=== PATIENT | male | born 1955 | race Caucasian/White ===

== ENCOUNTER 2017-07-12 11:18 | Observation (INO) ==
[2017-07-12] MEDS ORDERED: Ipratropium/Albuterol Neb 3 ML IH ONE (11:55)
--- NOTE | 2017-07-12 11:56 | Emergency Department Note ---
Disposition Clinical Impression: Pneumonia, Anemia, CKD (chronic kidney disease), Hypoglycemia Disposition: Admitted As Inpatient Condition: Fair Referrals: Kg Mejia MD [Primary Care Provider] - Anupama Erickson MD [Family Provider] - Forms: ED Satisfaction Letter, Work/School Release Time of Disposition: 13:35 ([facility]) General Adult HPI - General Chief complaint: ED General Medical Stated complaint: LOW BLOOD SUGAR Time Seen by Provider: 07/12/17 11:28 Source: EMS Mode of arrival: EMS Limitations: altered mental status Nursing Notes Reviewed: Yes Vital Signs Reviewed: Yes - History of Present Illness HPI Narrative: Notified by jail that the patient was to go to fist with his family when they went back to getting here almost fallen out of the bed and was difficult to arouse they did an Accu-Chek was 24 they gave him oral glucose at that time he continued to be combative at which point they then tried giving him additional glucose he was then sent to the emergency room by EMS for further evaluation EMS states they gave him IV glucose in route and he is now awakening and becoming more responsive and was initially they stated that he was cold and clammy patient was initially unable to tell us any history other than he had this not been feeling well after he was a fully awake that prior to the onset he said he felt fine yesterday during the day toward his evening started feeling Ill then by this morning was unaware of what happened Onset (ago): Just [employer] Location: other (generalzed) Pain Scale: 0 Consistency: Improving Improves with: other (iv glucose) Worsens with: nothing Associated symptoms: Reports: confusion, cough, diaphoresis, loss of appetite, malaise, shortness of breath, weakness. Denies: chest pain, fever/chills, headaches, nausea/vomiting, seizure, syncope Treatments Prior to Arrival: other (oral glucose bper [facility]) - Related Data Home Medications Medication Instructions Recorded Confirmed Atorvastatin [Lipitor] 40 mg PO HS 11/26/16 07/12/17 Allopurinol [Zyloprim 100 MG] 100 mg PO DAILY 06/03/17 07/12/17 Isosorbide DInitrate [Isosorbide 10 mg PO TID 06/03/17 07/12/17 Dinitrate] Metoprolol [Lopressor] 50 mg PO BID 06/03/17 07/12/17 SitaGLIPtin [Januvia] 25 mg PO DAILY 06/03/17 07/12/17 hydrALAZINE [HydrALAZINE] 10 mg PO TID 06/03/17 07/12/17 Oxycodone HCl [Oxycontin] 15 mg PO BID PRN 07/01/17 07/12/17 Insulin ASPART [NovoLOG] 0 unit SQ TIDWM 07/12/17 07/12/17 Insulin DETEMIR [Levemir Flextouch] 15 unit SQ QAM 07/12/17 07/12/17 Insulin DETEMIR [Levemir Flextouch] 20 unit SQ QPM 07/12/17 07/12/17 Previous Rx's Medication Instructions Recorded Acyclovir [Zovirax] 400 mg PO BID #60 tablet 05/20/17 Amitriptyline [Elavil] 50 mg PO HS #30 tablet 05/20/17 Furosemide [Lasix] 40 mg PO DAILY #30 tablet 07/08/17 Allergies Allergy/AdvReac Type Severity Reaction Status Date / Time SURGICAL TAPE Allergy Mild Rash Uncoded 06/24/17 08:08 Limitations: ROS unobtainable due to patients medical condition Past Medical History - Past Medical History Attestation: Yes The following information was validated with the patient. Source: patient, old records reviewed, obtained from family, nursing notes reviewed Medical history: Reports: asthma, cancer, COPD, CVA, diabetes, hypertension, myocardial infarction Surgical history: Reports: cancer surgery, vasectomy Psychiatric history: Reports: anxiety - Social History Smoking Status: Current some day smoker Smokeless Tobacco Status: No Alcohol use: Reports: none Drug use: Reports: none Physical Exam - General Limitations: altered mental status (slow o respond initially) General appearance: alert, in no apparent distress, lethargic, other - Head Head exam: atraumatic, normocephalic, normal inspection - Eye Eye exam: Present: normal appearance, PERRL, EOMI - ENT ENT exam: normal exam, normal oropharynx, mucous membranes moist, TM's normal bilaterally, normal external ear exam - Neck Neck exam: Present: normal inspection, full ROM, trachea midline - Chest Chest inspection: Present: normal inspection, symmetric chest wall rise. Absent : tenderness - Respiratory Respiratory exam: Present: wheezes (and rhonci), prolonged expiratory phase - Cardiovascular Cardiovascular exam: Present: regular rate, normal rhythm, normal heart sounds - Abdominal Exam Abdominal exam: Present: soft, Non-Tender, normal bowel sounds. Absent: mass, pulsatile mass - Extremities Exam Extremities exam: Present: normal inspection, full ROM, normal capillary refill. Absent: tenderness, pedal edema, joint swelling, calf tenderness - Expanded Lower Extremity Exam Neurovascular/Tendon exam: Present: normal capillary refill, normal fine/light touch Gait: observed and normal - Back Exam Back exam: Present: normal inspection, full ROM. Absent: muscle spasm - Neurological Exam Neurological exam: Present: alert, CN II-XII intact, other (slow but as becomes more alert is A/o x 3) - Psychiatric Psychiatric exam: Present: normal affect, normal mood - Skin Skin exam: Present: intact, pallor, other (cold and clamy after glucose warm and dry) Course Course Narrative: Patient was seen and examined patient was given aerosol treatments which did help clear up his respiratory significantly still having wheezing and congestion noted after the aerosol treatment patient also received IV antibiotics patient is alert and appropriate since receiving oral glucose and IV glucose per EMS patient states he just did not feel well as result patient will be admitted for the underlying pneumonia which is precipitating most likely causing his hypoglycemic events transferred to [facility] service of Dr. Reid he agrees Vital Signs Temperature 97.4 F L 07/12/17 11:23 Pulse Rate 71 07/12/17 11:23 Respiratory Rate 16 07/12/17 11:23 Blood Pressure 135/68 07/12/17 11:23 O2 Sat by Pulse Oximetry 99 07/12/17 11:23 Temperature 97.4 F L 07/12/17 11:23 Pulse Rate 67 07/12/17 13:01 Respiratory Rate 16 07/12/17 13:01 Blood Pressure 144/84 07/12/17 13:01 O2 Sat by Pulse Oximetry 99 07/12/17 13:01 Oxygen Delivery Oxygen Delivery Nasal Cannula Medical Decision Making - [facility] Narrative Medical decision making narrative: Hypoglycemia secondary to not eating versus infectious etiology or overmedication - Medical Records Medical records reviewed: Yes I reviewed the patient's medical records. - Lab Data Lab results reviewed: Yes I reviewed the patient's lab results. Result diagrams: 07/12/17 12:25 07/12/17 12:25 Lab Results 07/12/17 07/12/1707/12/17 Range/Units 12:25 12:25 12:25 WBC 7.0 (4.3-11.1) K/mcL RBC 2.56 L (4.19-5.50) M/mcL Hgb 7.8 L (12.9-16.9) g/dL Hct 23.8 L (37.5-50.1) % MCV 93.0 (83.0-100.0) fL MCH 30.5 (28.0-33.3) pg MCHC 32.8 (31.6-35.5) g/dL RDW 17.2 H (11.5-14.5) % Plt Count 75 L (140-400) K/mcL MPV 11.6 (9.4-12.4) fL Immature Gran % 0.4 (0-4) % Seg Neutrophils % 92.6 % Lymphocytes % 1.8 % Monocytes % 5.0 % Eosinophils % 0.1 % Basophils % 0.1 % Neutrophils # 6.5 (1.6-8.9) K/mcL Lymphocytes # 0.1 L (0.6-4.6) K/mcL Monocytes # 0.4 (0.0-1.3) K/mcL Eosinophils # 0.0 (0.0-0.6) K/mcL Basophils # 0.0 (0.0-0.2) K/mcL Platelet Estimate Decreased L (Normal) PT 15.1 H (9.4-12.1) Seconds INR 1.4 APTT 33.1 (26.0-36.0) Seconds Sodium 139 (136-145) mEq/L Potassium 3.4 L (3.5-4.5) mEq/L Chloride 104 (98-109) mEq/L Carbon Dioxide 26 (19-29) mEq/L BUN 34 H (8-26) mg/dL Creatinine 2.34 H (0.72-1.25) mg/dL Est GFR ( Amer) 34 L (> 60) Est GFR (Non-Af Amer) 28 L (> 60) BUN/Creatinine Ratio 15 (6-26) Glucose 73 (70-99) mg/dL Calculated Osmolality 294 (280-300) Lactic Acid (0.5-2.2) mmol/L Calcium 8.1 L (8.6-10.8) mg/dL Troponin I (0-0.03) ng/mL Urine Color (Yellow) Urine Clarity (Clear) Urine pH (5.0-8.0) pH Units Ur Specific [place] (1.010-1.025) Urine Protein (Neg-Trace) mg/dL Urine Glucose (UA) (Normal) mg/dL Urine Ketones (Negative) mg/dL Urine Blood (Negative) Urine Nitrite (Negative) Urine Bilirubin (Negative) Urine Urobilinogen (Normal) mg/dL Ur Leukocyte Esterase (Negative) Urine Microscopic RBC (0-3) per hpf Ur Squamous Epith Cells (None-Few) per lpf Ur Culture Indicated? (NO) 07/12/17 07/12/17 07/12/17 Range/Units 12:25 12:30 13:12 WBC (4.3-11.1) K/mcL RBC (4.19-5.50) M/mcL Hgb (12.9-16.9) g/dL Hct (37.5-50.1) % MCV (83.0-100.0) fL MCH (28.0-33.3) pg MCHC (31.6-35.5) g/dL RDW (11.5-14.5) % Plt Count (140-400) K/mcL MPV (9.4-12.4) fL Immature Gran % (0-4) % Seg Neutrophils % % Lymphocytes % % Monocytes % % Eosinophils % % Basophils % % Neutrophils # (1.6-8.9) K/mcL Lymphocytes # (0.6-4.6) K/mcL Monocytes # (0.0-1.3) K/mcL Eosinophils # (0.0-0.6) K/mcL Basophils # (0.0-0.2) K/mcL Platelet Estimate (Normal) PT (9.4-12.1) Seconds INR APTT (26.0-36.0) Seconds Sodium (136-145) mEq/L Potassium (3.5-4.5) mEq/L Chloride (98-109) mEq/L Carbon Dioxide (19-29) mEq/L BUN (8-26) mg/dL Creatinine (0.72-1.25) mg/dL Est GFR ( Amer) (> 60) Est GFR (Non-Af Amer) (> 60) BUN/Creatinine Ratio (6-26) Glucose (70-99) mg/dL Calculated Osmolality (280-300) Lactic Acid 0.8 (0.5-2.2) mmol/L Calcium (8.6-10.8) mg/dL Troponin I 0.05 H* (0-0.03) ng/mL Urine Color Yellow (Yellow) Urine Clarity Clear (Clear) Urine pH 7.0 (5.0-8.0) pH Units Ur Specific [place] 1.020 (1.010-1.025) Urine Protein 100 H (Neg-Trace) mg/dL Urine Glucose (UA) Normal (Normal) mg/dL Urine Ketones Negative (Negative) mg/dL Urine Blood Trace-lysed H (Negative) Urine Nitrite Negative (Negative) Urine Bilirubin Negative (Negative) Urine Urobilinogen Normal (Normal) mg/dL Ur Leukocyte Esterase Negative (Negative) Urine Microscopic RBC 0-3 (0-3) per hpf Ur Squamous Epith Cells Few (None-Few) per lpf Ur Culture Indicated? NO (NO) - Radiology Data Radiology results reviewed: Yes I reviewed the patient's radiology results. ITS Impressions Chest X-Ray 07/12/17 11:54 IMPRESSION: Findings as above concerning for multifocal pneumonia or edema. D/ / Anisha Loomis MD / Anisha Loomis MD Interpreting Provider: Anisha Loomis MD - EKG Data EKG #1 EKG attestation: Yes I reviewed and interpreted this EKG. EKG results narrative: Sinus rhythm rate 64 PA 170 QRS 120 QT 442 excess 74 Critical Care Time Critical Care Time: No
[2017-07-12] MEDS ORDERED: 0.9 % Sodium Chloride 1,000 ML IVC SCH ×2 (12:00→14:04)
[2017-07-12] MEDS ORDERED: Ipratropium/Albuterol Neb 3 ML ONE (12:25)
[2017-07-12 12:34] LABS: Basophils % 0.1 %; Eosinophils % 0.1 %; Hematocrit 23.8 % (37.5-50.1); Hemoglobin 7.8 g/dL (12.9-16.9); Immature Granulocytes % 0.4 % (0-4); Lymphocytes # 0.1 K/mcL (0.6-4.6); Lymphocytes % 1.8 %; Mean Corpuscular HGB Conc 32.8 g/dL (31.6-35.5); Mean Corpuscular Hemoglobin 30.5 pg (28.0-33.3); Mean Platelet Volume 11.6 fL (9.4-12.4); Monocytes # 0.4 K/mcL (0.0-1.3); Neutrophils # 6.5 K/mcL (1.6-8.9); Red Blood Count 2.56 M/mcL (4.19-5.50); Red Cell Distribution Width 17.2 % (11.5-14.5); Segmented Neutrophils % 92.6 %
[2017-07-12 12:39] LABS: Platelet Count 75 K/mcL (140-400)
[2017-07-12 12:40] LABS: INR 1.4; Prothrombin Time 15.1 Seconds (9.4-12.1)
[2017-07-12 12:43] LABS: Activated Partial Thrombo Time 33.1 Seconds (26.0-36.0)
[2017-07-12 12:50] LABS: Calcium 8.1 mg/dL (8.6-10.8); Potassium 3.4 mEq/L (3.5-4.5)
[2017-07-12] MEDS ORDERED: Azithromycin 500 MG in D5% in Water 250 ML IVPB ONE ×2 (12:58→14:30)
[2017-07-12 13:04] LABS: Platelet Estimate Decreased (Normal)
[2017-07-12 13:13] LABS: Bilirubin,Urine Negative (Negative); Blood,Urine Trace-lysed (Negative); Clarity,Urine Clear (Clear); Color,Urine Yellow (Yellow); Glucose,Urine (UA) Normal (Normal); Ketones,Urine Negative (Negative); Leukocyte Esterase,Urine Negative (Negative); Nitrite,Urine Negative (Negative); Protein,Urine 100 mg/dL (Neg-Trace); Urobilinogen,Urine Normal (Normal)
[2017-07-12 13:26] LABS: RBC,Urine 0-3 per hpf (0-3); Squamous Epithelial Cell,Urine Few per lpf (None-Few)
[2017-07-12] MEDS ORDERED: *HR* Dextrose 50 % in Water (Syg) 50 ML SYRINGE IVP PRN (14:04)
[2017-07-12] MEDS ORDERED: D5% in Water 1,000 ML IVC PRN (14:04)
[2017-07-12] MEDS ORDERED: Acetaminophen 325 MG TABLET PO PRN (14:04)
[2017-07-12] MEDS ORDERED: *HR* OxyCODONE Immed Rel 15 MG TABLET PO PRN (14:04)
[2017-07-12] MEDS ORDERED: Ondansetron 4 MG/2 ML VIAL IVP PRN (14:04)
[2017-07-12] MEDS ORDERED: Dextrose Gel 15 GM PO PRN ×2 (14:04)
[2017-07-12] MEDS: Insulin LISPRO 300 UNITS/3 ML VIAL SQ SCH (15:29)
[2017-07-12] MEDS: hydrALAZINE 10 MG TABLET PO SCH ×2 (15:33→20:06)
--- NOTE | 2017-07-12 17:43 | Internal Med History&Physical ---
Date of Encounter: 07/12/17 Time of Encounter: 17:05 Assessment and Plan (1) Pneumonia Current visit: Yes Status: Acute He has been started on Rocephin and Zithromax. I will add lactobacillus. Qualifiers: Pneumonia type: due to unspecified organism Laterality: bilateral Lung location: unspecified part of lung Qualified Code(s): J18.9 - Pneumonia, unspecified organism (2) Heart failure Current visit: Yes Status: Chronic He will be given IV Lasix and increased dose of Toprol and isosorbide. Qualifiers: Heart failure type: combined Qualified Code(s): I50.40 - Unspecified combined systolic (congestive) and diastolic (congestive) heart failure (3) Edema Current visit: Yes Status: Acute Suspect secondary to heart failure. Will order d-dimer. Qualifiers: Edema type: unspecified Qualified Code(s): R60.9 - Edema, unspecified (4) CKD (chronic kidney disease) Current visit: Yes Status: Chronic Will monitor renal indices. Qualifiers: Chronic kidney disease stage: stage 4 (severe) Qualified Code(s): N18.4 - Chronic kidney disease, stage 4 (severe) (5) Anemia Current visit: Yes Status: Chronic Anemia testing May 2017 showed no factor deficiency. Suspect due to multiple myeloma and chronic kidney disease. Qualifiers: Anemia type: unspecified type Qualified Code(s): D64.9 - Anemia, unspecified Internal Medicine - H&P: HPI Chief complaint: Pneumonia Admitted From: Emergency Dept Plans for Post Hospital Care: Home History of present illness: Mr. Benton is a 62 year old male who states he was out on a pass from [facility] with his brother to go to the [place]. He reports becoming dizzy at the [employer] so his brother took him back to the [place]. His blood sugar was found to be low. He did not respond sufficiently to oral glucose intervention. He was sent to emergency room for evaluation and was found to have probable bilateral pneumonia. He was admitted to [facility] floor for ongoing care needs. He denies pain or dyspnea at the present time. His respiratory history is significant for having smoked since age 9 up to 3 packs per day. He wears oxygen at the correction. He is uncertain if he has a diagnosis of COPD. Past Med Surg Social Fam HX - Past Medical History Medical history: asthma, cancer, COPD, CVA, diabetes, hypertension, myocardial infarction Psychiatric history: anxiety - Past Surgical History Surgical History: cancer surgery, vasectomy - Social History Smoking Status: Current some day smoker Packs per day: 0.5 Smokeless Tobacco Status: No Alcohol use: none Drug use: none Internal Medicine - H&P: Meds Atorvastatin [Lipitor] 40 mg PO HS 11/26/16 [History] Acyclovir [Zovirax] 400 mg PO BID #60 tablet 05/20/17 [Rx] Amitriptyline [Elavil] 50 mg PO HS #30 tablet 05/20/17 [Rx] Allopurinol [Zyloprim 100 MG] 100 mg PO DAILY 06/03/17 [History] Isosorbide DInitrate [Isosorbide Dinitrate] 10 mg PO TID 06/03/17 [History] Metoprolol [Lopressor] 50 mg PO BID 06/03/17 [History] SitaGLIPtin [Januvia] 25 mg PO DAILY 06/03/17 [History] hydrALAZINE [HydrALAZINE] 10 mg PO TID 06/03/17 [History] Oxycodone HCl [Oxycontin] 15 mg PO BID PRN 07/01/17 [History] Furosemide [Lasix] 40 mg PO DAILY #30 tablet 07/08/17 [Rx] Insulin ASPART [NovoLOG] 0 unit SQ TIDWM 07/12/17 [History] Insulin DETEMIR [Levemir Flextouch] 15 unit SQ QAM 07/12/17 [History] Insulin DETEMIR [Levemir Flextouch] 20 unit SQ QPM 07/12/17 [History] 3 Allergy/AdvReac Type Severity Reaction Status Date / Time SURGICAL TAPE Allergy Mild Rash Uncoded 06/24/17 08:08 All Systems PM: A 10-system review of systems was performed and is negative for pertinent findings except as documented above in the HPI. Review of systems: Gen.: He states his weight has been stable past 2 months Cardiovascular: He has history of hypertension and had CABG surgeries in 2005 and 2010. He also reports having 5 cardiac stents placed. An echocardiogram showed LVEF of 20-25% with moderate to severe LV diastolic dysfunction. There was [id number] [place], [place], and pulmonary hypertension with estimated RVSP of 45. There was a pleural effusion and a questionable PFO with [id number] shunt. He has had bilateral edema. He denies known DVT or pulmonary embolus. Respiratory: As per history of present illness GI: He denies disorders of his liver gallbladder or exocrine pancreas : He had left nephrectomy 2008 secondary to renal cell cancer. He did not require adjuvant therapy postoperatively. He denies other kidney bladder or prostate disorders Neurologic: He has peripheral neuropathy. He states he has had 2 strokes in the past and reports DepoCyt and balance up.. Endocrine: He was diagnosed with DM 2 approximately 2012. He has hyperlipidemia but denies thyroid disease. Hematology/oncology: He had left nephrectomy 2008 curative for renal cell cancer. He has been diagnosed with IgG lambda multiple myeloma with multiple bone metastases and is following with an [facility] oncologist. He has anemia and thrombocytopenia. Psychiatric: He has depression but denies anxiety or other mental health issues Musk skeletal: He has bone pain from myeloma spread. He is on allopurinol but is uncertain if he has been diagnosed with gout. - Constitutional Vitals: Temp Pulse Resp BP Pulse Ox 98.2 F 72 14 154/79 98 07/12/17 15:24 07/12/17 15:24 07/12/17 15:24 07/12/17 15:24 07/12/17 15:24 Exam: Gen.: He is a well-developed well-nourished male who appears in no severe distress at present time. He denies pain or dyspnea HEENT: Head is atraumatic and normocephalic. Eyes: EOMI. There is no scleral icterus. Mouth: Mucosa is moist. Neck: Supple and nontender. There is no thyromegaly or adenopathy noted. Heart: Regular without murmurs gallops or ectopics Lungs: No wheezes or crackles are heard. He has diminished breath sounds diffusely. Abdomen: Soft and nontender. No masses or guarding are noted. Extremities: He has 2-3+ edema of the left leg and 1-2+ edema of the right leg. Dorsalis pedis and posterior tibial pulses are nonpalpable bilaterally. There is a well-healed scar in the medial left calf from presumed vein graft harvest for previous CABG surgery. Neurologic: Mental status: He is able to answer questions and seems to be a fairly good historian. Cranial nerves: Smile is symmetric. Forehead wrinkles bilaterally. Tongue protrudes midline. EOMI. Motor: There is no pronator drift. Cerebellar: Finger to nose is intact bilaterally. Skin: Warm and dry Internal Med - H&P Results - Labs CBC & Chem 7: 07/12/17 12:25 07/12/17 12:25
[2017-07-12] MEDS ORDERED: Insulin DETEMIR 100 UNIT/ML X5UNITS SQ SCH (18:00)
[2017-07-12] MEDS ORDERED: NON-FORMULARY MEDICATION 1 EACH EACH (Insulin Detemir [Levemir Flextouch] 20 UNIT) SQ SCH (18:00)
[2017-07-12] MEDS: Furosemide 40 MG/4 ML VIAL IVP SCH (18:33)
[2017-07-12] MEDS ORDERED: *HR* Enoxaparin 80 MG/0.8 ML SYRINGE SQ ONE (19:37)
[2017-07-12] MEDS: Lactobacillus 1 EACH CAP.SPRINK PO SCH (20:06)
[2017-07-12] MEDS: Acyclovir 200 MG CAPSULE PO SCH (20:06)
[2017-07-13 07:31] LABS: Basophils % 0.2 %; Eosinophils % 0.5 %; Hematocrit 22.8 % (37.5-50.1); Hemoglobin 7.5 g/dL (12.9-16.9); Immature Granulocytes % 0.3 % (0-4); Lymphocytes # 0.3 K/mcL (0.6-4.6); Lymphocytes % 5.3 %; Mean Corpuscular HGB Conc 32.9 g/dL (31.6-35.5); Mean Corpuscular Hemoglobin 30.6 pg (28.0-33.3); Mean Corpuscular Volume 93.1 fL (83.0-100.0); Mean Platelet Volume 11.3 fL (9.4-12.4); Monocytes # 0.4 K/mcL (0.0-1.3); Monocytes % 6.6 %; Neutrophils # 5.4 K/mcL (1.6-8.9); Red Blood Count 2.45 M/mcL (4.19-5.50); Red Cell Distribution Width 17.2 % (11.5-14.5); Segmented Neutrophils % 87.1 %
[2017-07-13 07:33] LABS: Platelet Count 59 K/mcL (140-400)
[2017-07-13 08:42] LABS: Albumin 2.3 g/dL (3.5-5.0); Albumin/Globulin Ratio 0.7 (1.1-2.2); Bilirubin,Total 0.7 mg/dL (0.2-1.2); Globulin 3.5 g/dL (2.4-3.5); Magnesium 1.4 mg/dL (1.6-2.6); Total Protein 5.8 g/dL (6.0-8.3)
[2017-07-13] MEDS: Lactobacillus 1 EACH CAP.SPRINK PO SCH (09:00)
[2017-07-13] MEDS: Acyclovir 200 MG CAPSULE PO SCH (09:00)
[2017-07-13] MEDS: *HR* SitaGLIPtin 25 MG TABLET PO SCH (09:00)
[2017-07-13] MEDS: hydrALAZINE 10 MG TABLET PO SCH ×2 (09:00→15:49)
[2017-07-13] MEDS ORDERED: Furosemide 40 MG TABLET PO SCH (09:00)
[2017-07-13] MEDS: Furosemide 40 MG/4 ML VIAL IVP SCH (09:02)
--- NOTE | 2017-07-13 09:26 | Internal Med Progress Note ---
Date of Encounter: 07/13/17 Time of Encounter: 09:20 - Assessment and plan (1) Pneumonia Current Visit: Yes Status: Acute Assessment and plan: July 13. Continue Rocephin and Zithromax with lactobacillus. Qualifiers: Pneumonia type: due to unspecified organism Laterality: bilateral Lung location: unspecified part of lung Qualified Code(s): J18.9 - Pneumonia, unspecified organism (2) Heart failure Current Visit: Yes Status: Chronic Assessment and plan: July 13. Continue Toprol, isosorbide, and IV Lasix. Qualifiers: Heart failure type: combined Qualified Code(s): I50.40 - Unspecified combined systolic (congestive) and diastolic (congestive) heart failure (3) Edema Current Visit: Yes Status: Acute Assessment and plan: July 13. Continue heart failure treatment as per above. His d-dimer significantly elevated so bilateral venous ultrasound of the legs will be ordered. Continue empiric Lovenox. Qualifiers: Edema type: unspecified Qualified Code(s): R60.9 - Edema, unspecified (4) CKD (chronic kidney disease) Current Visit: Yes Status: Chronic Assessment and plan: July 13. Will monitor renal indices as needed. Qualifiers: Chronic kidney disease stage: stage 4 (severe) Qualified Code(s): N18.4 - Chronic kidney disease, stage 4 (severe) (5) Anemia Current Visit: Yes Status: Chronic Assessment and plan: July 13. Anemia testing May 2017 showed no factor deficiency. Suspect due to multiple myeloma and chronic kidney disease. Qualifiers: Anemia type: unspecified type Qualified Code(s): D64.9 - Anemia, unspecified (6) Hypomagnesemia Current Visit: Yes Status: Acute Assessment and plan: July 13. Suspect due to diuretic use. Will give magnesium supplement and monitor labs. - Subjective Interval history: July 13. He has no new complaints. He denies pain or dyspnea. - Constitutional Vitals: Temp Pulse Resp BP Pulse Ox 97.5 F L 84 18 131/73 99 07/13/17 06:29 07/13/17 06:29 07/13/17 06:29 07/13/17 06:29 07/13/17 06:29 Exam: He is resting comfortably in bed and appears in no acute distress. He has a few crackles in his lung bases on inspiration. His legs show slightly decreased edema bilaterally. Heart is regular without murmurs or gallops. I reviewed his medications and lab results. Internal Medicine: Result - Labs CBC & Chem 7: 07/13/17 07:10 07/13/17 07:10 Labs: Short CBC 07/13/17 Range/Units 07:10 WBC 6.2 (4.3-11.1) K/mcL Hgb 7.5 L (12.9-16.9) g/dL Hct 22.8 L (37.5-50.1) % Plt Count 59 L (140-400) K/mcL Neutrophils # 5.4 (1.6-8.9) K/mcL BMP 07/13/17 07:10 Sodium 138 Potassium 4.0 Chloride 104 Carbon Dioxide 26 BUN 33 H Creatinine 2.44 H Glucose 111 H Calcium 8.0 L Cardiac Enzymes 07/12/17 Range/Units 17:07 Troponin I 0.04 H* (0-0.03) ng/mL Liver Function 07/13/17 Range/Units 07:10 Total Bilirubin 0.7 (0.2-1.2) mg/dL AST 30 (5-34) Units/L ALT 24 (0-55) Units/L Alkaline Phosphatase 203 H (38-126) Units/L Albumin 2.3 L (3.5-5.0) g/dL - ABG Interpretation ABG results: PT/INR, D-dimer PT 15.1 Seconds (9.4-12.1) H 07/12/17 12:25 D-Dimer 3384 ng/mLFEU (0-500) H 07/12/17 18:26 Consult Discharge Plan - Plan Referrals: Kg Mejia MD [Primary Care Provider] - 1 week Anupama Erickson MD [Family Provider] - 1 week
[2017-07-13] MEDS ORDERED: *HR* Enoxaparin 80 MG/0.8 ML SYRINGE SQ SCH (09:45)
[2017-07-13] MEDS ORDERED: *HR* Digoxin 0.125 MG TABLET PO SCH ×2 (09:45→13:45)
[2017-07-13] MEDS ORDERED: cefTRIAXone 1,000 MG in Water for inj. (sterile) 10 ML IVP SCH (13:00)
[2017-07-13] MEDS ORDERED: CefTRIAXone 1,000 MG VIAL ONE (13:16)
[2017-07-13] MEDS: Insulin DETEMIR 100 UNIT/ML X5UNITS SQ SCH (13:48)
[2017-07-13] MEDS: *HR* Enoxaparin 80 MG/0.8 ML SYRINGE SQ SCH (13:54)
[2017-07-13] MEDS ORDERED: Azithromycin 500 MG in D5% in Water 250 ML IVPB SCH (14:00)
[2017-07-13] MEDS: Magnesium Oxide 400 MG TABLET PO SCH (17:48)
[2017-07-13] MEDS: Insulin LISPRO 300 UNITS/3 ML VIAL SQ SCH ×3 (17:51→17:54)
[2017-07-13] MEDS ORDERED: Insulin DETEMIR 100 UNIT/ML X5UNITS SQ SCH (21:00)
[2017-07-14] MEDS: Acyclovir 200 MG CAPSULE PO SCH ×2 (00:16→09:06)
[2017-07-14] MEDS: Lactobacillus 1 EACH CAP.SPRINK PO SCH ×2 (00:17→09:06)
[2017-07-14] MEDS: hydrALAZINE 10 MG TABLET PO SCH ×2 (00:19→09:06)
[2017-07-14] MEDS: Magnesium Oxide 400 MG TABLET PO SCH ×2 (00:29→09:06)
[2017-07-14 05:31] LABS: Magnesium 1.3 mg/dL (1.6-2.6); Potassium 3.7 mEq/L (3.5-4.5)
[2017-07-14 05:50] LABS: Basophils % 0.2 %; Eosinophils % 0.7 %; Hematocrit 23.4 % (37.5-50.1); Hemoglobin 7.7 g/dL (12.9-16.9); Immature Granulocytes % 0.4 % (0-4); Lymphocytes # 0.2 K/mcL (0.6-4.6); Lymphocytes % 4.3 %; Mean Corpuscular HGB Conc 32.9 g/dL (31.6-35.5); Mean Corpuscular Hemoglobin 30.3 pg (28.0-33.3); Mean Corpuscular Volume 92.1 fL (83.0-100.0); Monocytes # 0.4 K/mcL (0.0-1.3); Monocytes % 6.7 %; Neutrophils # 4.9 K/mcL (1.6-8.9); Platelet Count 75 K/mcL (140-400); Red Blood Count 2.54 M/mcL (4.19-5.50); Red Cell Distribution Width 17.2 % (11.5-14.5); Segmented Neutrophils % 87.7 %
[2017-07-14 06:27] VITALS: BP 132/72
[2017-07-14] MEDS: *HR* Enoxaparin 80 MG/0.8 ML SYRINGE SQ SCH (06:34)
[2017-07-14] MEDS: Insulin LISPRO 300 UNITS/3 ML VIAL SQ SCH (08:53)
[2017-07-14] MEDS: Furosemide 40 MG/4 ML VIAL IVP SCH (09:06)
[2017-07-14] MEDS: *HR* SitaGLIPtin 25 MG TABLET PO SCH (10:02)
[2017-07-14] MEDS: Insulin DETEMIR 100 UNIT/ML X5UNITS SQ SCH (10:02)
--- NOTE | 2017-07-14 10:12 | Discharge Summary ---
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 (3) Edema Priority: Secondary Status: Chronic Qualifiers: Edema type: unspecified Qualified Code(s): R60.9 - Edema, unspecified (4) CKD (chronic kidney disease) Priority: Secondary Status: Chronic Qualifiers: Chronic kidney disease stage: stage 4 (severe) Qualified Code(s): N18.4 - Chronic kidney disease, stage 4 (severe) (5) Anemia Priority: Secondary Status: Chronic Qualifiers: Anemia type: unspecified type Qualified Code(s): D64.9 - Anemia, unspecified (6) Hypomagnesemia Priority: Secondary Status: Acute - Discharge Medications Prescriptions: Cefuroxime PO [Ceftin] 500 mg PO Q12HR 3 Days tablet Azithromycin [Zithromax] 250 mg PO DAILY 3 Days tablet Lactobacillus [Culturelle] 1 each PO BID 3 Days cap.sprink Home Medications: Atorvastatin [Lipitor] 40 mg PO HS 11/26/16 [History] Acyclovir [Zovirax] 400 mg PO BID #60 tablet 05/20/17 [Rx] Amitriptyline [Elavil] 50 mg PO HS #30 tablet 05/20/17 [Rx] Allopurinol [Zyloprim 100 MG] 100 mg PO DAILY 06/03/17 [History] SitaGLIPtin [Januvia] 25 mg PO DAILY 06/03/17 [History] hydrALAZINE [HydrALAZINE] 10 mg PO TID 06/03/17 [History] Oxycodone HCl [Oxycontin] 15 mg PO BID PRN 07/01/17 [History] Furosemide [Lasix] 40 mg PO DAILY #30 tablet 07/08/17 [Rx] Insulin ASPART [NovoLOG] 0 unit SQ TIDWM 07/12/17 [History] Azithromycin [Zithromax] 250 mg PO DAILY 3 Days tablet 07/14/17 [Rx] Cefuroxime PO [Ceftin] 500 mg PO Q12HR 3 Days tablet 07/14/17 [Rx] Digoxin [Lanoxin] 0.125 mg PO QOD tablet 07/14/17 [Rx] Insulin DETEMIR [Levemir Flextouch] 10 unit SQ QPM #0 07/14/17 [Rx] Isosorbide DInitrate [Isordil] 20 mg PO Q8H tablet 07/14/17 [Rx] Lactobacillus [Culturelle] 1 each PO BID 3 Days cap.sprink 07/14/17 [Rx] Magnesium Oxide [Mag-Ox] 400 mg PO BID 7 Days tablet 07/14/17 [Rx] Metoprolol [Lopressor] 75 mg PO BID tablet 07/14/17 [Rx] Allergies/Adverse Reactions: 3 Allergy/AdvReac Type Severity Reaction Status Date / Time SURGICAL TAPE Allergy Mild Rash Uncoded 06/24/17 08:08 Procedures/tests Complete & Pending: Procedures Performed prior 72 hours Category Date Time Status Venous Doppler [EV venous imaging LE BI] Routine Y 07/13/17 09:35 Completed Date of admission: 07/12/17 13:36 Primary care physician: Kg Mejia MD Consults: 07/12/17 15:22 Consult to Sap Mobility Architect [CONS] Routine Reason for SW Consult: D/C planning back to [facility] ([facility]) - Patient Status Disposition: Transfer SNF Condition: Fair Overall status at discharge: patient is progressing back to baseline - Discharge Instructions Follow Up With: Kg Mejia MD [Primary Care Provider] - 1 week - Diet and Activity Diet: advance to your usual diet Hospital course: Mr. Benton is a 62 year old male who states he was out on a pass from [facility] with his brother to go to the [facility]. He reports becoming dizzy at the [facility] so his brother took him back to the half-way. His blood sugar was found to be low. He did not respond sufficiently to oral glucose intervention. He was sent to emergency room for evaluation and was found to have probable bilateral pneumonia. [facility]. Initial orders were written by the emergency room physician. I saw him on July 12 performed the history and physical. He was started on Rocephin and Zithromax with lactobacillus. He remained afebrile and clinically stable throughout his hospitalization. WBC remained normal and there was improvement in his left shift on differential with segs 87.7% on 07/14/2017 with total WBC 5.6. He will continue with antibiotic and probiotic for 3 additional days of discharge. Bn peptide returned elevated at 2981. He was started on higher dose metoprolol and isosorbide. Lanoxin was started and Lasix and hydralazine were continued. Continue this regimen at the half-way. D-dimer returned significantly elevated at 3384. Venous Doppler studies of both legs however showed no evidence of DVT. He was not dyspneic so chest CTA was not attempted in view of his renal failure. On July 14 he felt stable for discharge back to [facility] he will follow with Dr. Mejia. - Time Spent with Patient Total time spent providing and/or coordinating discharge services: - Constitutional Vitals: Temp Pulse Resp BP Pulse Ox 97.4 F L 75 18 132/72 99 07/14/17 06:25 07/14/17 06:25 07/14/17 06:25 07/14/17 06:25 07/14/17 06:25
--- NOTE | 2017-07-14 10:21 | Physician Discharge Referral ---
ExtendedCare Referral Info Transfer To: [facility] Provider in Charge: [place] Provider in Charge after Transfer: PCP (Kg Mejia M.D.) - Diagnosis (1) Pneumonia Priority: Primary Status: Acute (2) Heart failure Priority: Secondary Status: Chronic (3) Edema Priority: Secondary Status: Chronic (4) CKD (chronic kidney disease) Priority: Secondary Status: Chronic (5) Anemia Priority: Secondary Status: Chronic (6) Hypomagnesemia Priority: Secondary Status: Acute Prognosis: Fair Aware of Diagnosis: Patient - Transfer Medications Prescriptions: Cefuroxime PO [Ceftin] 500 mg PO Q12HR 3 Days tablet Azithromycin [Zithromax] 250 mg PO DAILY 3 Days tablet Lactobacillus [Culturelle] 1 each PO BID 3 Days cap.sprink Home Medications: Atorvastatin [Lipitor] 40 mg PO HS 11/26/16 [History] Acyclovir [Zovirax] 400 mg PO BID #60 tablet 05/20/17 [Rx] Amitriptyline [Elavil] 50 mg PO HS #30 tablet 05/20/17 [Rx] Allopurinol [Zyloprim 100 MG] 100 mg PO DAILY 06/03/17 [History] SitaGLIPtin [Januvia] 25 mg PO DAILY 06/03/17 [History] hydrALAZINE [HydrALAZINE] 10 mg PO TID 06/03/17 [History] Oxycodone HCl [Oxycontin] 15 mg PO BID PRN 07/01/17 [History] Furosemide [Lasix] 40 mg PO DAILY #30 tablet 07/08/17 [Rx] Insulin ASPART [NovoLOG] 0 unit SQ TIDWM 07/12/17 [History] Azithromycin [Zithromax] 250 mg PO DAILY 3 Days tablet 07/14/17 [Rx] Cefuroxime PO [Ceftin] 500 mg PO Q12HR 3 Days tablet 07/14/17 [Rx] Digoxin [Lanoxin] 0.125 mg PO QOD tablet 07/14/17 [Rx] Insulin DETEMIR [Levemir Flextouch] 10 unit SQ QPM #0 07/14/17 [Rx] Isosorbide DInitrate [Isordil] 20 mg PO Q8H tablet 07/14/17 [Rx] Lactobacillus [Culturelle] 1 each PO BID 3 Days cap.sprink 12/04/17 [Rx] Magnesium Oxide [Mag-Ox] 400 mg PO BID 7 Days tablet 07/14/17 [Rx] Metoprolol [Lopressor] 75 mg PO BID tablet 07/14/17 [Rx] Allergies/Adverse Reactions: 3 Allergy/AdvReac Type Severity Reaction Status Date / Time SURGICAL TAPE Allergy Mild Rash Uncoded 06/24/17 08:08 - Respiratory Orders Smoking Cessation: Smoking cessation has been advised. For more information, call the [place] Tobacco Quit Line at 7-100-TQEH-NOW. - Lab Orders Lab Orders: Other (include drug levels w/frequency) (Dig level, BNP peptide, CBC with differential, BMP, magnesium level in 1 week) - Mobility Orders Ambulate - Rehabiliation Orders Rehab Potential: Poor Rehab Orders: Evaluation for Physical Therapy, Evaluation for Occupational Therapy - Diet Orders No Concentrated Sweets CERTIFICATION: I certify that the transfer of the above named patient to an Extended Care Facility is necessary for the continuing treatment of the diagnosis listed. The above information is true and accurate reflection of patient's current condition. Confidential - Redisclosure prohibited without a patient's written consent.
--- NOTE | 2017-07-15 22:43 | Electrocardiograph Report ---
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
== END 2017-07-14 11:45 ==
LOC: EMEROOPIK 11:18 → INPPIK 11:18
PROVIDERS: ADMIT Internal Medicine; ATTEND Internal Medicine